=== PATIENT | male | born 1990 | race African-American/Black ===

== ENCOUNTER → 2017-10-11 | Outpatient (CLI) | payer OTHER ==
[~2017-10-11] MED LIST: BACT800T5 PO; TYLE650T35 PO
[2017-10-11 20:38] LABS: ANION GAP 4 MEQ/L (8-16); BLOOD UREA NITROGEN 12 MG/DL (7-18); CALCIUM LEVEL 9.8 MG/DL (8.5-10.1); CARBON DIOXIDE LEVEL 33 MEQ/L (21-32); CHLORIDE LEVEL 103 MEQ/L (98-107); CREATININE FOR GFR 0.96 MG/DL (0.70-1.30); GLOMERULAR FILTRATION RATE > 60.0 (>60); GLUCOSE, FASTING 88 MG/DL (70-105); POTASSIUM SERUM 4.1 MEQ/L (3.5-5.1); SODIUM LEVEL 140 MEQ/L (136-145)
== END ==
LOC: M LAB 19:04
PROVIDERS: ATTEND Nurse Practitioner Women's Health
DX: N47.8 Other disorders of prepuce (principal)

== ENCOUNTER 2017-10-12 09:59 | Day surgery (SDC) | payer OTHER ==
[~2017-10-12] VITALS: Ht 195.6 cm; Wt 89.8 kg
[2017-10-12] MEDS ORDERED: LR 1,000 ML IV ONE (10:00)
[2017-10-12] MEDS ORDERED: fentaNYL 100 MCG/2 ML INJECTION (J3010) As Ordered ONE (10:11)
[2017-10-12] MEDS ORDERED: dexameTHASONE 4 MG/ML 1ML VIAL (J1100) As Ordered ONE (10:11)
[2017-10-12] MEDS ORDERED: KETOROLAC 60 MG/2 ML VIAL (J1885) As Ordered ONE (10:11)
[2017-10-12] MEDS ORDERED: PROPOFOL 200 MG/20 ML VIAL As Ordered ONE (10:11)
[2017-10-12] MEDS ORDERED: MIDAZOLAM INJ 2 MG/2 ML VIAL (J2250) As Ordered ONE (10:11)
[2017-10-12] MEDS ORDERED: ONDANSETRON 4MG/2ML VIAL (J2405) As Ordered ONE (10:11)
[2017-10-12] MEDS ORDERED: LIDOCAINE 1% SDV INJ 30 ML VIAL As Ordered ONE (10:44)
[2017-10-12] MEDS ORDERED: BUPIVACAINE HCL 0.25% 30 ML VIAL As Ordered ONE (10:44)
[2017-10-12] MEDS ORDERED: BACITRACIN OINT 30GM As Ordered ONE (10:45)
[2017-10-12] MEDS ORDERED: HYDROmorphone HCL 2 MG/ML 1ML VIAL (J1170) As Ordered ONE (11:48)
[2017-10-12] MEDS ORDERED: TYLE650T35 PO (12:21)
[2017-10-12] MEDS ORDERED: BACT800T5 PO (12:21)
[2017-10-12] MEDS ORDERED: fentaNYL 100 MCG/2 ML INJECTION (J3010) IV PRN (12:45)
[2017-10-12] MEDS ORDERED: ONDANSETRON 4MG/2ML VIAL (J2405) IV PRN (12:45)
[2017-10-12] MEDS ORDERED: LR 1,000 ML IV SCH (12:45)
[2017-10-12] MEDS ORDERED: PERCOCET 5MG/325MG TAB PO PRN (12:45)
[2017-10-12 14:00] VITALS: BP 145/88
[2017-10-12] MEDS ORDERED: BACTRIM 160MG/800MG DS TAB PO SCH (21:00)
[2017-10-12] MEDS ORDERED: ACETAMINOPHEN 650MG ER TAB (TYLENOL ARTHRITIS) PO SCH (22:00)
--- NOTE | 2017-10-13 08:23 | RO ---
DATE OF PROCEDURE: 10/12/2017 PREPROCEDURE DIAGNOSIS: Phimosis. POSTPROCEDURE DIAGNOSIS: Phimosis. SURGERY: Circumcision. SURGEON: Dr. Jose Miguel Roberts CLINICAL ASSOC: None. ANESTHESIA: General. COMPLICATIONS: None. ESTIMATED BLOOD LOSS: Minimal. HISTORY OF PRESENT ILLNESS: 26-year-old male patient who has problems retracting his foreskin and multiple irritations in glans and foreskin. For this reason, he has consented for a circumcision. DESCRIPTION OF PROCEDURE: With the patient under general anesthesia in supine position, after prepping and draping the area of concern, which included the entire genitalia and abdomen, we started by doing a penile block also with Marcaine 0.25% 5 mL and Lidocaine 1% 5 mL, total of 10 mL around the base of the penis. We then proceeded to retract to foreskin and then do an incision 1 cm away from the sulcus of the glans in a circumferential fashion with a 15 bistoury blade. We then proceeded to do another circumferential incision in the foreskin about 3 cm proximal to the base from the first incision. We then with the Metzenbaum scissors dissected the strip of foreskin between both incisions and then fulgurated the bleeding vessels with electro bovie cautery. Once hemostasis was actively confirmed we performed a suturing of both borders of the skin with chromic #3-0 separate stitches. We then placed Bacitracin cream around the wound, wrapped inner wall out with Kerlix roll and Coban. PLAN: The patient will go home today with antibiotic and pain medication. Followup at [facility] in 5 days to remove the bandages. He cannot have sexual intercourse for 1 month. He may shower in 3 days. There were no complications. Foreskin was sent for pertinent pathology.
== END 2017-10-12 14:03 | disposition home or self-care (01) ==
LOC: M SDC 09:59
PROVIDERS: ATTEND Urology
DX: N47.1 Phimosis (principal); F17.210 Nicotine dependence, cigarettes, uncomplicated
CPT/HCPCS: 54161; 88304; J0690; J1100; J1170; J2250; J2405; J3010

== ENCOUNTER 2017-12-19 09:15 | Emergency (ER) | payer OTHER | END 2017-12-19 10:52 | disposition home or self-care (01) | LOC: M ED 09:15 | DX: K64.8 Other hemorrhoids (principal); F17.210 Nicotine dependence, cigarettes, uncomplicated | CPT/HCPCS: 99283 ==